=== PATIENT | male | born 1955 | race Caucasian/White ===

== ENCOUNTER 2020-01-31 08:03 | Emergency (ER) | payer SELFPAY ==
[2020-01-31 08:25] VITALS: BP 128/70; PULSE 69; RESP 16; TEMP 36.9; O2SAT 99
--- NOTE | 2020-01-31 08:27 | ED.GENADULT ---
HPI - General Adult General Chief complaint: Back Pain/Injury Stated complaint: back/leg pain Time Seen by Provider: 01/31/20 08:27 Source: patient Mode of arrival: ambulatory Limitations: no limitations History of Present Illness HPI narrative: 64-year-old male patient presents to the [facility] with complaints of left-sided back pain that started suddenly at 3 AM. Patient states that the back pain does radiate down to the left knee. Patient denies any injury. Patient denies any pain with urination. Patient states he has had back pain before and usually does go away with Aleve. Patient states he did take some Aleve this morning. Patient denies any numbness or tingling down the legs. Denies any loss of bowel or bladder control. Patient does have history of smoking. Related Data Home Medications Medication Instructions Recorded Confirmed naproxen sodium [Aleve] 220 mg PO Q12H 01/31/20 01/31/20 Allergies Allergy/AdvReac Type Severity Reaction Status Date / Time No Known Allergies Allergy Verified 01/31/20 08:32 Review of Systems Review of Systems: Narrative: CONSTITUTIONAL: Denies fever, chills, or sweats. EYES: Denies visual changes, redness, or discharge. ENT: Denies rhinorrhea, congestion, sore throat, or otalgia. CARDIOVASCULAR: Denies chest pain, palpitations, or edema. RESPIRATORY: Denies cough or dyspnea. GASTROINTESTINAL: Denies abdominal pain, nausea, vomiting, or diarrhea. GENITOURINARY: Denies dysuria or hematuria. SKIN: Denies rash or itching. MUSCULOSKELETAL: Positive left low back pain/flank pain that radiates to the left leg, denies joint pain, or myalgia. NEUROLOGIC: Denies headache, numbness, or weakness. PSYCHIATRIC: Denies anxiety or depression. PMFSH Comments At the time of my signature I agree with nursing past medical history, surgical, social, and family history. There is no relevant family history pertinent to the presenting complaint. Exam Narrative: Exam Narrative: GENERAL: Well-appearing, well-nourished, and in no acute distress. HEAD: Normocephalic, atraumatic. EYES: PERRLA and EOMI. ENT: Nares clear, no rhinorrhea or epistaxis. Mucous membranes moist. NECK: Supple. No lymphadenopathy CHEST: Clear to auscultation. No respiratory distress. HEART: Regular rate and rhythm. No murmur heard. Normal peripheral pulses. ABDOMEN: Soft, nontender, nondistended, normal active bowel sounds. EXTREMITIES: Normal range of motion. No edema. Left-sided CVA tenderness on percussion BACK: Patient is able to ambulated without assistance. Pt is seated on the stretcher in no obvouis distress. No surface trauma noted. No muscle tenderness to Palpation. No spasm or mass. No step-offs or deformity noted to the cervical, thoracic or lumbar spine to firm Palpation at the midline. No CVA tenderness to percussion. No saddle anesthesia. ROM: able to stand erect. Normal flexion, extension, Lateral bending and rotation without limitation or complaint of pain. SKIN: Warm, dry, no rash. NEURO: No focal deficits. Alert and oriented x3. Course Reevaluation(s) Reevaluation #1: Notify patient that there is no blood in his urine dip however there is some leukocytes and nitrates which can be indicative of a urinary tract infection and since he does have some CVA tenderness on percussion this most likely is some type of infection. Discussed with patient we will discharge him home with an antibiotic and send his urine off to the lab for culture. Discussed with patient that if his antibiotic needs to be changed or discontinued he did get a phone call from us. I will also give him a referral for primary doctor. Discussed with patient that if his back pain continues to worsen or he develops fevers, abdominal pain, nausea, vomiting or diarrhea then he would need to go the ER for further evaluation and treatment. Patient verbalized understanding denies any other questions or concerns. Date: 01/31/20 Time: 08:52 Vital Signs Vital sig
== END 2020-01-31 08:57 | disposition home or self-care (01) ==
PROVIDERS: Emergency Provider Nurse Practitioner Family
DX: N39.0 Urinary tract infection, site not specified (principal); Z87.891 Personal history of nicotine dependence
CPT/HCPCS: 81003; 87086; 87088; 99203; G0463